=== PATIENT | female | born 1955 | race Hispanic/Latino ===

== ENCOUNTER 2019-12-22 15:11 | Inpatient (IN) | payer MEDICARE ==
[~2019-12-22] VITALS: Ht 149.9 cm; Wt 90.4 kg
[2019-12-22 15:46] LABS: BASOPHILS % (AUTO) 1.2 % (0.0-5.0); CARBON DIOXIDE 26 mmol/L (21-32); CHLORIDE 107 mmol/L (101-111); CREATININE 0.7 mg/dL (0.5-1.5); EOSINOPHILS % (AUTO) 3.9 % (0.0-8.0); GLOMERULAR FILTR. RATE CALC 90 mL/min (>60); GLUCOSE,RANDOM 166 mg/dL (70-105); HEMATOCRIT 38.3 % (36-48); MEAN CORPUSCULAR HEMOGLOBIN 27.5 pg (27.0-33.0); MEAN CORPUSCULAR HGB CONC 31.3 g/dL (32.0-36.0); MEAN CORPUSCULAR VOLUME 87.6 fL (79-99); MONOCYTES % (AUTO) 11.3 % (3.0-13.0); NEUTROPHILS % (AUTO) 60.6 % (40.0-77.0); PLATELET COUNT (AUTO) 89 K/uL (130-400); RED BLOOD CELL COUNT(AUTO) 4.37 MIL/uL (4.00-5.50); RED CELL DISTRIBUTION WIDTH 19.8 % (11.0-15.5); SODIUM SERUM 140 mmol/L (136-145); UREA NITROGEN, BLOOD 11 mg/dL (7-18); WHITE BLOOD COUNT (AUTO) 2.6 K/uL (4.8-10.8)
[2019-12-22 15:57] LABS: ALANINE AMINOTRANSFERASE 20 U/L (12-78); ALBUMIN 3.2 g/dL (3.5-5.0); ASPARTATE AMINOTRANSFERASE 36 U/L (10-37); BILIRUBIN,TOTAL 2.9 mg/dL (0.2-1.0); CREATINE KINASE, TOTAL 81 U/L (21-232); MYOGLOBIN 29 ng/mL (10-92); TOTAL PROTEIN, SERUM 7.5 g/dL (6.0-8.3); TROPONIN I < 0.04 ng/mL (0.00-0.06)
[2019-12-22 15:58] LABS: INR 1.1 (0.85-1.15); PARTIAL THROMBOPLASTIN TIME 25.5 SEC (26.3-35.5); PROTHROMBIN TIME 11.8 SEC (9.6-11.6)
[2019-12-22 16:35] LABS: BASOPHILS % (MANUAL) 2 % (0-2); EOSINOPHILS % (MANUAL) 5 % (1-6); LYMPHOCYTES % (MANUAL) 24 % (22-44); MONOCYTES % (MANUAL) 5 % (2-9); SEGMENTED NEUTROPHILS % 64 % (40-70)
[2019-12-22 16:36] LABS: MAN.DIFF COMMENT-IMPRESSION MANUAL DIFFERENTIAL
[2019-12-22 16:49] LABS: BILIRUBIN,URINE Negative (NEGATIVE); COLOR,URINE Dark Yellow (YELLOW); GLUCOSE, URINE (UA) Negative (NEGATIVE); KETONES,URINE Negative (NEGATIVE); LEUKOCYTE ESTERASE ,URINE Trace (NEGATIVE); NITRATE,URINE Positive (NEGATIVE); OCCULT BLOOD,URINE Negative (NEGATIVE); PROTEIN,URINE Negative (NEGATIVE)
[2019-12-22] MEDS ORDERED: IOHEXOL-350 75 ML VIAL IV ONE ×2 (16:54→20:19)
[2019-12-22 16:55] LABS: APPEARANCE,URINE CLOUDY (CLEAR)
[2019-12-22] MEDS ORDERED: AZITHROMYCIN 500MG+NS 250ML 250 ML IV ONE (16:55)
[2019-12-22] MEDS ORDERED: SODIUM CHLORIDE 0.9% 1000ML 1,000 ML IV ONE (16:55)
[2019-12-22] MEDS ORDERED: CEFTRIAXONE SODIUM 1 GM ONE (16:56)
[2019-12-22 16:57] LABS: BACTERIA,URINE Many /HPF (None Seen); MUCUS,URINE Few LPF (None Seen); SQUAMOUS EPITHELIAL CELL,UR 0-2 /HPF (0-2)
[2019-12-22] MEDS ORDERED: DEXAMETHASONE SOD PHOSPHATE 10MG/ML 1ML VIAL ONE (17:34)
[2019-12-22] MEDS ORDERED: NITROGLYCERIN 0.4 MG SL TAB SL PRN (19:15)
[2019-12-22] MEDS ORDERED: ERGOCALCIFEROL (VITAMIN D2) 50,000 UNIT CAPSULE PO ONE (19:15)
[2019-12-22] MEDS ORDERED: DIPHENHYDRAMINE HCL 25 MG CAPSULE PO PRN (19:15)
[2019-12-22] MEDS ORDERED: GLUCAGON 1MG KIT 1 MG ML IM PRN (19:15)
[2019-12-22] MEDS ORDERED: ONDANSETRON HCL 4 MG/2 ML VIAL IV PRN (19:15)
[2019-12-22] MEDS ORDERED: DEXTROSE 50%-WATER 50 ML DISP.SYRIN IV PRN (19:15)
[2019-12-22] MEDS ORDERED: ALBUTEROL INHALER 90MCG/INH IH PRN (19:15)
[2019-12-22 20:37] LABS: HEMOGLOBIN A1C 7.3 % (4.0-6.0)
[2019-12-22] MEDS ORDERED: FAMOTIDINE 20MG TAB 20 MG TAB ONE (20:54)
[2019-12-22] MEDS ORDERED: ERGOCALCIFEROL (VITAMIN D2) 50,000 UNIT CAPSULE ONE (20:54)
[2019-12-22] MEDS ORDERED: ACETYLCYSTEINE 600 MG CAPSULE ONE (20:55)
[2019-12-22] MEDS: FAMOTIDINE 20MG TAB 20 MG TAB PO SCH (21:00)
[2019-12-22] MEDS: ACETYLCYSTEINE 600 MG CAPSULE PO SCH (21:00)
[2019-12-22] MEDS: INSULIN HUMULIN R 100 UNIT/ML 3ML SQ SCH (21:00)
[2019-12-22 21:14] LABS: CRP QUANTITATIVE 4.3 mg/L (0.00-9.0); MAGNESIUM 1.8 mg/dL (1.80-2.40)
[2019-12-22] MEDS ORDERED: ONDANSETRON HCL 4 MG/2 ML VIAL ONE (21:22)
[2019-12-23 04:22] LABS: BASOPHILS % (AUTO) 0.4 % (0.0-5.0); HEMATOCRIT 37.6 % (36-48); LYMPHOCYTES % (AUTO) 12.4 % (21.0-51.0); MEAN CORPUSCULAR HEMOGLOBIN 27.4 pg (27.0-33.0); MEAN CORPUSCULAR HGB CONC 31.6 g/dL (32.0-36.0); MEAN CORPUSCULAR VOLUME 86.4 fL (79-99); MONOCYTES % (AUTO) 1.7 % (3.0-13.0); NEUTROPHILS % (AUTO) 85.5 % (40.0-77.0); PLATELET COUNT (AUTO) 64 K/uL (130-400); RED BLOOD CELL COUNT(AUTO) 4.35 MIL/uL (4.00-5.50); RED CELL DISTRIBUTION WIDTH 19.1 % (11.0-15.5); WHITE BLOOD COUNT (AUTO) 2.3 K/uL (4.8-10.8)
[2019-12-23 04:36] LABS: ALANINE AMINOTRANSFERASE 18 U/L (12-78); ALBUMIN 2.9 g/dL (3.5-5.0); ASPARTATE AMINOTRANSFERASE 33 U/L (10-37); BILIRUBIN,TOTAL 2.6 mg/dL (0.2-1.0); CARBON DIOXIDE 24 mmol/L (21-32); CHLORIDE 107 mmol/L (101-111); CREATININE 0.7 mg/dL (0.5-1.5); GLOMERULAR FILTR. RATE CALC 90 mL/min (>60); GLUCOSE,RANDOM 221 mg/dL (70-105); LACTATE DEHYDROGENASE 224 U/L (81-234); POTASSIUM 3.9 mmol/L (3.5-5.1); SODIUM SERUM 141 mmol/L (136-145); TOTAL PROTEIN, SERUM 6.9 g/dL (6.0-8.3); UREA NITROGEN, BLOOD 14 mg/dL (7-18)
[2019-12-23] MEDS: CEFTRIAXONE SODIUM 1 GM IVP SCH ×2 (05:48→17:42)
[2019-12-23 08:00] VITALS: BP 110/58
[2019-12-23] MEDS ORDERED: ZINC SULFATE 220 CAPSULE PO SCH (09:00)
[2019-12-23] MEDS ORDERED: AZITHROMYCIN 500MG+NS 250ML 250 ML IV SCH (09:00)
[2019-12-23] MEDS ORDERED: ASCORBIC ACID 500 MG TAB PO SCH (09:00)
[2019-12-23 09:07] VITALS: BP 110/58
[2019-12-23] MEDS: FAMOTIDINE 20MG TAB 20 MG TAB PO SCH (10:04)
[2019-12-23] MEDS: ACETYLCYSTEINE 600 MG CAPSULE PO SCH (10:04)
[2019-12-23] MEDS: INSULIN HUMULIN R 100 UNIT/ML 3ML SQ SCH ×3 (10:29→16:30)
[2019-12-23 12:00] VITALS: BP 143/82
[2019-12-23 12:10] VITALS: BP 143/82
[2019-12-23 16:00] VITALS: BP 127/59
[2019-12-23] MEDS ORDERED: LEVO500T89 PO ×3 (17:29→18:25)
--- NOTE | 2019-12-23 17:54 | NUR ---
DC PLAN PATIENT LIVES WITH SPOUSE AND SISTER, INDEPENDENT, O, HOME. SAID THAT SHE CALLED HIM TOLD HIM SHE IS GETTING DC. DID NOT SEE ORDER. FEELS SAFE TO RETURN HOME. Addendum: 12/23/19 at 1756 by DANETTE BURGESS RN CM Amended: Links added.
== END 2019-12-23 20:00 | disposition home or self-care (01) | DRG 690 ==
LOC: EDH 15:11 → EDHIP 18:32 → 2BH 21:58
PROVIDERS: ADMIT Internal Medicine; ATTEND Internal Medicine
DX: N39.0 Urinary tract infection, site not specified (principal); Z20.828 Contact with and (suspected) exposure to other viral communicable diseases; I10 Essential (primary) hypertension; E11.9 Type 2 diabetes mellitus without complications; J45.909 Unspecified asthma, uncomplicated; D69.6 Thrombocytopenia, unspecified; D72.819 Decreased white blood cell count, unspecified; K74.60 Unspecified cirrhosis of liver; E66.9 Obesity, unspecified; Z68.39 Body mass index [BMI] 39.0-39.9, adult; Z88.8 Allergy status to other drugs, medicaments and biological substances; Z88.6 Allergy status to analgesic agent
CPT/HCPCS: 36415; 71045; 71250; 80053; 81001; 82140; 82150; 82550; 82728; 82948; 83036; 83605; 83615; 83690; 83735; 83874; 84145; 84484; 85025; 85378; 85610; 85730; 86140; 86900; 86901; 87040; 87077; 87088; 87186; 87426; 87449; 93005; 99291; G0378; J0456; J0696; J1100; J2405; J7030; Q9967; U0003